=== PATIENT | female | born 1955 ===

== ENCOUNTER 2018-07-26 06:10 | Day surgery (SDC) | payer OTHER ==
[~2018-07-26 06:10] MED LIST: AMLODIPINE BESY10 MG; ATORVASTATIN CA20 MG; LOSARTAN POTAS100 MG; METFORMIN HCL500 MG
== END 2018-07-26 16:20 | disposition home or self-care (01) ==
LOC: CIR.AMB 06:10
DX: K43.9 Ventral hernia without obstruction or gangrene (principal)